=== PATIENT | female | born 1940 | race Caucasian/White ===

== ENCOUNTER 2022-10-08 07:12 | Day surgery (SDC) | payer MEDICARE, OTHER ==
[~2022-10-08 07:12] MED LIST: Lidocaine 1%/Sod Bicarbonate in NS 8.4% 1 ML Syringe IDERM PRN; Sodium Chloride 0.9% 10 ML Syringe FLUSH PRN; Sodium Chloride 0.9% 10 ML Syringe FLUSH SCH
[2022-10-08] MEDS: Lactated Ringers 1,000 ML IV SCH ×2 (07:30→11:15)
[2022-10-08] MEDS ORDERED: Rocuronium 50 MG/5 ML Vial ONE (08:00)
[2022-10-08] MEDS ORDERED: Lidocaine 1% 2 ML ONE (08:00)
[2022-10-08] MEDS ORDERED: Propofol 200 MG/20 ML SDV ONE (08:00)
[2022-10-08] MEDS ORDERED: fentaNYL 100 MCG/2 ML SDV ONE (08:00)
[2022-10-08] MEDS ORDERED: Ondansetron 4 MG/2 ML SDV ONE (08:01)
[2022-10-08] MEDS ORDERED: Midazolam 1 MG/ML 2 ML SDV ONE (08:24)
[2022-10-08] MEDS ORDERED: ceFAZolin 2 GM Vial ONE (09:00)
[2022-10-08] MEDS ORDERED: Phenylephrine HCl In 0.9% NaCl 1 MG/10 ML Vial ONE ×2 (09:46→10:05)
[2022-10-08] MEDS: Tranexamic Acid 1,000 MG/10 ML Vial ONE ×2 (09:52→10:15)
[2022-10-08] MEDS: Vancomycin 1 GM SDV ONE ×2 (09:52→10:15)
[2022-10-08] MEDS: Morphine 8 MG, EPINEPHrine 0.3 MG, Cefuroxime 750 MG, Ketorolac 30 MG, Sodium Chloride ... PRN ×10 (09:53→10:14)
[2022-10-08] MEDS ORDERED: Acetaminophen/HYDROcodone 325-5 MG Tab PO PRN (13:49)
== END 2022-10-08 15:32 | disposition home or self-care (01) ==
LOC: JD.SDS 07:12
PROVIDERS: ATTEND Orthopaedic Surgery
DX: M16.12 Unilateral primary osteoarthritis, left hip (principal); I10 Essential (primary) hypertension; E78.00 Pure hypercholesterolemia, unspecified; E66.9 Obesity, unspecified; E11.9 Type 2 diabetes mellitus without complications; E03.9 Hypothyroidism, unspecified; F32.A Depression, unspecified; Z68.41 Body mass index [BMI] 40.0-44.9, adult; Z98.890 Other specified postprocedural states; Z79.899 Other long term (current) drug therapy; Z79.890 Hormone replacement therapy; Z79.82 Long term (current) use of aspirin; Z88.8 Allergy status to other drugs, medicaments and biological substances
CPT/HCPCS: 0055T; 27130; 36415; 73501; 85610; 85730; 86850; 86870; 86900; 86901; 97110; 97116; 97161; A9270; C1713; C1776; J0171; J0690; J0697; J1885; J2250; J2270; J2704; J3010; J3370; J7120; 01214; 99100; J2405; J3490

== ENCOUNTER 2025-06-07 10:24 | Inpatient (IN) | payer MEDICARE, OTHER ==
[~2025-06-07 10:24] MED LIST changes: -Lidocaine 1%/Sod Bicarbonate in NS 8.4% 1 ML Syringe IDERM PRN; -Sodium Chloride 0.9% 10 ML Syringe FLUSH SCH
[2025-06-07] MEDS: Lactated Ringers 1,000 ML IV SCH (11:00)
[2025-06-07] MEDS ORDERED: Ondansetron 4 MG/2 ML SDV IVPUSH PRN (11:12)
[2025-06-07] MEDS ORDERED: Lidocaine 1% 4 ML ONE (11:35)
[2025-06-07] MEDS ORDERED: Ondansetron 4 MG/2 ML SDV ONE (11:35)
[2025-06-07] MEDS ORDERED: propofoL 500 MG/50 ML 50 ML ONE (11:36)
[2025-06-07] MEDS ORDERED: fentaNYL 100 MCG/2 ML SDV ONE ×2 (11:36→14:25)
[2025-06-07] MEDS ORDERED: Lactated Ringers 1,000 ML IV ONE (13:45)
[2025-06-07] MEDS ORDERED: Lidocaine 1% 2 ML ONE (13:47)
[2025-06-07] MEDS ORDERED: Ketamine HCL/NACL, ISO-OSM 50 MG/5 ML Syringe ONE (14:08)
[2025-06-07] MEDS: Morphine 8 MG, EPINEPHrine 0.3 MG, Cefuroxime 750 MG, Ketorolac 30 MG, Sodium Chloride ... PRN (15:10)
[2025-06-07] MEDS ORDERED: Glycopyrrolate 0.2 MG/ML 2 ML SDV ONE (15:22)
[2025-06-07] MEDS: fentaNYL 100 MCG/2 ML SDV IVPUSH PRN (16:14)
[2025-06-07] MEDS ORDERED: Ondansetron 4 MG Tab.DIS PO PRN (17:19)
[2025-06-07] MEDS: Sodium Chloride 0.9% 10 ML Syringe FLUSH SCH (19:03)
[2025-06-08] MEDS: Aspirin 325 MG Tab.EC PO SCH (08:43)
[2025-06-09] MEDS: Hydrochlorothiazide/Triamterene 25-37.5 MG Cap PO SCH (08:42)
[2025-06-09 08:52] LABS: BASOPHILS ABSOLUTE AUTO 0.0 K/mm3 (0.0-0.2); BASOPHILS PERCENT AUTO 0.3 % (0.0-1.0); EOSINOPHILS ABSOLUTE AUTO 0.2 K/mm3 (0.0-0.4); EOSINOPHILS PERCENT AUTO 1.2 % (0.0-6.0); IMMATURE GRAN ABSOLUTE AUTO 0.05 K/mm3 (0.00-0.05); IMMATURE GRAN PERCENT AUTO 0.3 % (0.0-0.4); LYMPHOCYTES ABSOLUTE AUTO 1.1 K/mm3 (1.0-4.8); LYMPHOCYTES PERCENT AUTO 6.9 % (24.0-44.0); MEAN PLATELET VOLUME 10.9 fl (9.4-12.3); MONOCYTES ABSOLUTE AUTO 1.9 K/mm3 (0.0-0.8); MONOCYTES PERCENT AUTO 12.1 % (0.0-8.0); NEUTROPHILS ABSOLUTE AUTO 12.3 K/mm3 (1.8-7.7); NEUTROPHILS PERCENT AUTO 79.2 % (41.0-71.0); NRBC ABSOLUTE 0.00 (0.00-0.02); NRBC PERCENT 0.0 % (0.0-0.2); PLATELET COUNT,PLT 249 K/mm3 (150-400); RED BLOOD CELL COUNT 4.14 M/mm3 (4.10-5.30); WHITE BLOOD CELL COUNT,WBC 15.51 K/mm3 (3.9-11.3)
[2025-06-09 09:09] LABS: BLOOD UREA NITROGEN,BUN 11.0 mg/dL (7-18); CARBON DIOXIDE,CO2 31.0 mEq/L (21-32); CHLORIDE,CL 96.0 mEq/L (98-107); CREATININE 0.9 mg/dL (0.55-1.02); EST CRCL DRUG DOSING (CG) 36.8 mL/min; ESTIMATED GFR 63.0 mL/min (>60); GLUCOSE RANDOM 162.0 mg/dL (70-99); POTASSIUM,K 3.9 mEq/L (3.5-5.1); SODIUM,NA 131.0 mEq/L (136-145)
[2025-06-09] MEDS: Insulin Lispro 100 Unit/ML 3 ML KwikPen SUBCUT SCH (17:36)
[2025-06-10 10:50] LABS: BASOPHILS ABSOLUTE AUTO 0.0 K/mm3 (0.0-0.2); BASOPHILS PERCENT AUTO 0.2 % (0.0-1.0); EOSINOPHILS ABSOLUTE AUTO 0.6 K/mm3 (0.0-0.4); EOSINOPHILS PERCENT AUTO 4.6 % (0.0-6.0); IMMATURE GRAN ABSOLUTE AUTO 0.05 K/mm3 (0.00-0.05); IMMATURE GRAN PERCENT AUTO 0.4 % (0.0-0.4); LYMPHOCYTES ABSOLUTE AUTO 1.3 K/mm3 (1.0-4.8); LYMPHOCYTES PERCENT AUTO 11.0 % (24.0-44.0); MEAN PLATELET VOLUME 11.1 fl (9.4-12.3); MONOCYTES ABSOLUTE AUTO 2.3 K/mm3 (0.0-0.8); MONOCYTES PERCENT AUTO 18.7 % (0.0-8.0); NEUTROPHILS ABSOLUTE AUTO 8.0 K/mm3 (1.8-7.7); NEUTROPHILS PERCENT AUTO 65.1 % (41.0-71.0); NRBC ABSOLUTE 0.00 (0.00-0.02); NRBC PERCENT 0.0 % (0.0-0.2); PLATELET COUNT,PLT 257 K/mm3 (150-400); RED BLOOD CELL COUNT 4.04 M/mm3 (4.10-5.30); WHITE BLOOD CELL COUNT,WBC 12.22 K/mm3 (3.9-11.3)
[2025-06-10 11:12] LABS: BLOOD UREA NITROGEN,BUN 15.0 mg/dL (7-18); CARBON DIOXIDE,CO2 30.0 mEq/L (21-32); CHLORIDE,CL 96.0 mEq/L (98-107); CREATININE 1.0 mg/dL (0.55-1.02); EST CRCL DRUG DOSING (CG) 33.12 mL/min; ESTIMATED GFR 56.0 mL/min (>60); GLUCOSE RANDOM 158.0 mg/dL (70-99); POTASSIUM,K 3.7 mEq/L (3.5-5.1); SODIUM,NA 132.0 mEq/L (136-145)
== END 2025-06-11 13:25 | disposition home or self-care (01) | DRG 470 ==
LOC: JD.SDS 10:24 → JD.MS 18:12 → JD.SDS 06-08 16:42 → JD.MS 06-08 16:43
PROVIDERS: ADMIT Orthopaedic Surgery; ATTEND Orthopaedic Surgery
PROC: 0SR90JZ Replacement of Right Hip Joint with Synthetic Substitute, Open Approach (ICD-10-PCS; principal; 2025-06-08)
DX: M16.11 Unilateral primary osteoarthritis, right hip (principal); J98.11 Atelectasis; Z68.41 Body mass index [BMI] 40.0-44.9, adult; H91.90 Unspecified hearing loss, unspecified ear; H54.7 Unspecified visual loss; I10 Essential (primary) hypertension; K21.9 Gastro-esophageal reflux disease without esophagitis; M19.90 Unspecified osteoarthritis, unspecified site; F41.9 Anxiety disorder, unspecified; F32.A Depression, unspecified; E11.9 Type 2 diabetes mellitus without complications; E78.2 Mixed hyperlipidemia; E03.9 Hypothyroidism, unspecified; E66.01 Morbid (severe) obesity due to excess calories; R26.2 Difficulty in walking, not elsewhere classified; R09.02 Hypoxemia; Z88.8 Allergy status to other drugs, medicaments and biological substances; Z88.5 Allergy status to narcotic agent; Z79.890 Hormone replacement therapy; Z79.899 Other long term (current) drug therapy; Z98.49 Cataract extraction status, unspecified eye; Z90.49 Acquired absence of other specified parts of digestive tract; Z90.710 Acquired absence of both cervix and uterus
CPT/HCPCS: 01214; 36415; 71045; 71045-26; 71046; 71046-26; 73501-26-RT; 73501-RT; 80048; 82947; 83735; 85025; 94761; 94762; 97110-GP; 97112-GP; 97116-GP; 97162-GP; 97166-GO; 97530-GP; 97535-GO; 99100; A9270-GY; C1713; C1776; J0169; J0690; J0697; J1171; J1596; J1650; J1885; J2003; J2272; J2405; J2704; J2710; J3010; J3373; J3490; J7120